=== PATIENT | male | born 1995 | race Hispanic/Latino ===

== ENCOUNTER 2022-07-09 00:29 | Emergency (ER) | payer SELFPAY ==
[~2022-07-09] VITALS: Ht 170.2 cm; Wt 72.0 kg
[2022-07-09] VITALS (26 sets, daily range): BP systolic 93–118; BP diastolic 49–82
[2022-07-09 00:59] LABS: BASO% 0.8 % (0-3); EOS% 1.6 % (0-8); HEMATOCRIT 40.9 % (39.0-50.0); HEMOGLOBIN 13.5 g/dl (14.0-18.0); IMMATURE GRANULOCYTES 0.3 % (0.0-5.0); LYMPH% 30.9 % (15-41); MEAN CELL VOLUME 83.1 fL CALC (80.0-100.0); MEAN CORPUSCULAR HGB 27.4 pG CALC (26.0-32.0); MONO% 8.1 % (2-13); NEUT# 3.58 thou/uL (1.82-7.42); NEUT% 58.3 % (42-76); RED BLOOD COUNT 4.92 mill/uL (4.70-6.10); RED CELL DISTRI WIDTH 13.2 % (11.5-15.5)
[2022-07-09 01:13] LABS: ALBUMIN 4.6 g/dL (3.2-5.0); ALKALINE PHOSPHATASE 70 u/l (38-126); ANION GAP 15 (6-22 (CALC)); BILIRUBIN, TOTAL 0.1 mg/dL (0.2-1.3); BUN 13 mg/dL (9-20); BUN/CREATININE RATIO 17 (12-20 (CALC)); CARBON DIOXIDE 26 mmol/l (22-30); CHLORIDE 108 mmol/l (95-108); CREATININE 0.8 mg/dL (0.7-1.3); GFR FOR AFR.AMER. > 60 ML/MIN (>=60 (CALC)); GFR OTHER RACES > 60 ML/MIN (>=60 (CALC)); LIPASE 68 u/l (23-300); POTASSIUM 3.2 mmol/l (3.5-5.1); SGOT/AST 33 u/l (17-59); SODIUM 145 mmol/l (137-146); TOTAL PROTEIN 7.6 g/dL (6.3-8.2)
[2022-07-09 01:15] LABS: ETHYL ALCOHOL 203 mg/dl (0-30)
== END 2022-07-09 08:06 | disposition home or self-care (01) | DRG 897 ==
LOC: ED 00:29
PROVIDERS: Family Medicine
DX: F10.129 Alcohol abuse with intoxication, unspecified (principal); Y90.5 Blood alcohol level of 100-119 mg/100 ml; R06.00 Dyspnea, unspecified